=== PATIENT | male | born 1950 | race Caucasian/White ===

== ENCOUNTER 2017-01-28 10:42 | Emergency (ER) | payer BC ==
--- NOTE | 2017-01-28 11:36 | ERNOTE ---
Back Pain ER HPI Date of Service: 01/28/17 Presenting Symptoms: injury/pain to back Time Seen by Provider: 01/28/17 11:07 Source: patient, RN notes reviewed Exam Limitations: no limitations Allergies/Adverse Reactions: Allergies No Known Allergies Allergy (Unverified 01/28/17 10:52) Home Medications: HOME MEDICATIONS Cyclobenzaprine HCl [Flexeril] 10 mg PO TID PRN #30 tab 01/28/17 [Last Taken Unknown] Narrative: 66 y/o male ambulatory to the ED for left lower back pain that began gradually 3 weeks ago. He has had pain off and on in the same area for several years but this is worse. The pain radiates down his left leg. He also has some numbness in the left leg. The pain has gotten worse over the past couple of days. He has been taking Aleve with some improvement. He does not have a PCP. Timing: Reports: getting worse Quality/Severity: Reports: moderate, aching Location of pain: Reports: lower back, radiating to lf thigh/leg Activities at Onset: Reports: none Recent Injury?: Reports: no Possible Precipitating Factor: Reports: none Associated Symptoms: Reports: problems urinating - chronic difficulty starting stream - no incontinence, numbess/weakness in legs. Denies: fever/chills, sweating, constipation/incontinence, nausea/vomiting, difficulty walking, lightheadedness Prior Treament: Denies: recently seen Review of Systems - Review of Systems Constitutional: Absent: recent illness, fever, chills EYE: Present: no symptoms reported ENT: Present: no symptoms reported Respiratory: Absent: shortness of breath, cough Cardiology: Absent: chest pain, edema Gastrointestinal/Abdominal: Absent: nausea, vomiting, abdominal pain Genitourinary: Absent: dysuria, hematuria Musculoskeletal: Present: back pain. Absent: neck pain, joint pain, joint swelling Skin: Absent: rash, lesions, lumps Neurological: Present: numbness, tingling. Absent: headache, dizziness/light- headedness, weakness Endocrine: Present: no symptoms reported Hematologic/Lymphatic: Present: no symptoms reported Psych: Present: no symptoms reported - Patient's Past Medical History Patient History - Medical: No pertinent hx Patient History - Cardiac/Respiratory: No pertinent hx Patient History - Cancer: No Hx of Cancer Patient History - Surgical Procedures: Noncontributory - Social History Living Situations: home Smoking Status: Never smoker Alcohol Use: none Drug Use: none Physical Exam - Physical Exam General Appearance: Present: wd/wn, alert, no apparent distress Head Exam: Present: normal inspection Neck: Present: normal inspection, nontender, supple, full range of motion Respiratory: Present: no respiratory distress, normal breath sounds, no accessory muscle use, lungs clear Cardiovascular/Chest: Present: regular rate, rhythm, no murmur Gastrointestinal/Abdominal: Present: nontender, nondistended, soft Back Exam: Present: normal range of motion, no CVA tenderness, no vertebral tenderness, other - tenderness with palpation in left lumbar paraspinal muscles , negative straight leg test Extremity Exam: Present: normal inspection, normal range of motion, no edema Neurological Exam: Present: alert, oriented, normal mood/affect DTR: N=norm/NB=norm/brisk/A=abs/DD=dull/dimin/HC=hyperactive: Knee (R): Normal/ Brisk, Knee (L): Dull/Diminished Skin Exam: Present: normal color, warm/dry ED Progress - Vital Signs Patient's Vital Signs:: I have reviewed the patient's vital signs. Vital Signs: Vital Signs 01/28/17 10:50 Temperature 37.1 C Pulse Rate 84 Respiratory 16 Rate Blood Pressure 150/99 O2 Sat by Pulse 98 Oximetry - X-Ray X-Ray #1 X-Ray: lumbosacral Interpretation: Reviewed by me X-ray Comments: Lumbar Complete W/ Obliques *: FINDINGS/IMPRESSION: 1. Five nonrib-bearing lumbar vertebral bodies are noted. 2. Pedicles are intact and symmetric. 3. Interpediculate distances are normal. 4. Lateral view demonstrates no compression deformity. 5. Normal alignment is seen. 6. Patient has mild to moderate disc space narrowing throughout the lumbar spine affecting all of the lumbar spine levels and a fairly even fashion, with endplate degenerative changes with relative sparing of the L1-L2 level. 7. Facet joint degenerative changes noted throughout the lumbar spine especially at the L4-L5 and L5-S1 levels. 8. 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 9. Spinous processes and transverse processes are grossly intact. 10. Oblique images demonstrate no definite signs of spondylolysis. Electronically signed by Manisha Cleveland M.D.. - Progress/Reassessment Chief Complaint: Back Pain Progress:: Unchanged Departure Clinical Impression: Low back pain radiating to left lower extremity - Departure Disposition: Home Follow Up Needed Condition: Stable Instructions: Back Pain, Adult, Back Exercises Additional Instructions: Contact the clinic to establish with a primary care provider for follow up You could also consider seeing a back specialist - Dr. Casas is in [place] Continue Aleve - take with food Muscle relaxant will cause drowsiness Prescriptions: Cyclobenzaprine HCl [Flexeril] 10 mg PO TID PRN #30 tab PRN Reason: MUSCLE SPASMS
[2017-01-28 12:53] VITALS: BP 149/87
== END 2017-01-28 12:04 | disposition home or self-care (01) ==
LOC: ER 10:42
DX: M54.5 Low back pain (principal)